=== PATIENT | female | born 1960 | race Caucasian/White ===

== ENCOUNTER 2017-11-22 15:23 | Emergency (ER) | payer MEDICAID ==
[~2017-11-22] VITALS: Ht 170.2 cm; Wt 61.4 kg
[2017-11-22 15:55] VITALS: BP 102/70
[2017-11-22] MEDS ORDERED: ketorolac trometh. 30mg/ml inj. IM ONE (18:05)
[2017-11-22] MEDS ORDERED: HYDR-569 PO (18:07)
[2017-11-22] MEDS ORDERED: ondansetron 4mg rapidly disintigrating tab PO ONE (18:20)
== END 2017-11-22 18:41 | disposition home or self-care (01) ==
LOC: ER 15:24
DX: S82.141A Displaced bicondylar fracture of right tibia, initial encounter for closed fracture (principal); W10.9XXA Fall (on) (from) unspecified stairs and steps, initial encounter; Y93.89 Activity, other specified; Y92.89 Other specified places as the place of occurrence of the external cause; Y99.8 Other external cause status
CPT/HCPCS: 29505; 73564; 96372; 99284; J1885

== ENCOUNTER 2017-12-02 09:42 | Outpatient (CLI) | payer MEDICAID ==
[2017-12-02 09:42] VITALS: BP 133/95
[~2017-12-02 09:42] MED LIST: HYDR-569 PO
== END 2017-12-02 10:45 | disposition home or self-care (01) ==
LOC: ORTHO 09:42
PROVIDERS: ATTEND Nurse Practitioner Family
DX: S82.141A Displaced bicondylar fracture of right tibia, initial encounter for closed fracture (principal); F17.210 Nicotine dependence, cigarettes, uncomplicated; G89.29 Other chronic pain; K44.9 Diaphragmatic hernia without obstruction or gangrene; X58.XXXA Exposure to other specified factors, initial encounter; Y93.89 Activity, other specified; Y92.89 Other specified places as the place of occurrence of the external cause; Y99.8 Other external cause status
CPT/HCPCS: 73560; 99215

== ENCOUNTER 2017-12-25 12:04 | Observation (INO) | payer MEDICAID ==
[2017-12-21 11:45] LABS: MEAN CORPUSCULAR HEMOGLOBIN 32.3 PG (27.0-31.0); MEAN CORPUSCULAR HGB CONC 33.9 % (33.0-36.5); MEAN CORPUSCULAR VOLUME 95.4 FL (78-98); MEAN PLATELET VOLUME 7.9 FL (7.4-10.4); PRE OP HEMATOCRIT 43.9 % (35.0-45.0); PRE OP HEMOGLOBIN 14.9 g/dL (12.0-16.0); PRE OP PLATELET COUNT 334 X10'3 (140-440); RED CELL DISTRIBUTION WIDTH 15.4 % (11.5-14.5)
[2017-12-21 12:00] LABS: ALBUMIN 4.1 G/DL (3.4-5.0); ALBUMIN/GLOBULIN RATIO 1.1 (1.1-1.5); ALKALINE PHOSPHATASE 94 IU/L (46-116); BLOOD UREA NITROGEN 12 MG/DL (7-18); BUN/CREATININE RATIO 17.1 (6.6-38.0); CALCIUM 9.6 MG/DL (8.5-10.1); CHLORIDE 98 MMOL/L (99-107); PRE OP ALT 21 U/L (30-65); PRE OP ANION GAP 13 (8-16); PRE OP AST 19 U/L (10-37); PRE OP BILIRUB, TOTAL 0.6 MG/DL (0.0-1.0); PRE OP GLUCOSE 94 MG/DL (70-104); PRE OP SODIUM 137 MMOL/L (135-145); TOTAL CARBON DIOXIDE 26.3 MMOL/L (24-32); TOTAL PROTEIN 7.9 G/DL (6.4-8.2); eGFR 87 ML/MIN
[2017-12-21 12:08] LABS: TOTAL CELLS COUNTED 100
[2017-12-21 12:10] LABS: PLATELET ESTIMATE NORMAL
[2017-12-21 12:11] LABS: HOWELL-JOLLY BODIES FEW
[2017-12-21 12:12] LABS: STOMATOCYTES FEW; TARGET CELLS FEW
[2017-12-25] VITALS (21 sets, daily range): BP systolic 124–160; BP diastolic 79–100
[~2017-12-25] VITALS: Ht 170.2 cm; Wt 60.2 kg
[~2017-12-25 12:04] MED LIST changes: +Cefazolin 2GM/100ML NS IVPB IV ONE; -HYDR-569 PO; +IBUP-1984 PO; +LIDOcaine 1% (10mg/ml) 2ml vial ONE; +VANCOMYCIN INJ 1000 MG in NORMAL SALINE 250ml IV.SOLN IV ONE; +albuterol 2.5 MG/3 ML nebule NEB ONE; +famotidine 20mg tablet PO ONE
[2017-12-25] MEDS: ringers solution, lacted 1,000 ML IV SCH ×2 (12:13→17:38)
[2017-12-25] MEDS ORDERED: ROPIVAcaine 0.5% (5mg/ml) 30ml vial ONE (12:57)
[2017-12-25] MEDS ORDERED: LIDOcaine 2% (20mg/ml) 5ml vial ONE (13:00)
[2017-12-25] MEDS ORDERED: sevoflurane 250ml liquid IH ONE (13:00)
[2017-12-25] MEDS ORDERED: propofol inj 20 ML IV ONE (13:00)
[2017-12-25] MEDS ORDERED: dexamethasone sod phosphate 4mg/ml inj. ONE (13:00)
[2017-12-25] MEDS ORDERED: ondansetron/PF 4mg/2ml inj ONE (13:00)
[2017-12-25] MEDS ORDERED: rocuronium 10mg/ml inj IV ONE (13:26)
[2017-12-25] MEDS ORDERED: fentaNYL/PF 50MCG/1 ML 2ML syringe ONE ×2 (13:28→13:57)
[2017-12-25] MEDS ORDERED: ceFAZolin 1000mg inj ONE (13:33)
[2017-12-25] MEDS ORDERED: ketorolac trometh. 30mg/ml inj. ONE (13:58)
[2017-12-25] MEDS ORDERED: ringers solution, lacted 1,000 ML IV SCH (14:04)
[2017-12-25] MEDS ORDERED: ondansetron/PF 4mg/2ml inj IV PRN ×2 (14:05→16:25)
[2017-12-25] MEDS ORDERED: hydrALAZINE 20mg/ml inj. IV PRN (14:05)
[2017-12-25] MEDS ORDERED: labetalol 5mg/ml 20ml inj. IV PRN (14:05)
[2017-12-25] MEDS ORDERED: morphine 4 MG/ML inj SYRINge IV PRN ×2 (14:05)
[2017-12-25] MEDS ORDERED: morphine 10mg/ml inj. ONE (14:50)
[2017-12-25] MEDS: fentaNYL/PF 50MCG/1 ML 2ML syringe IV PRN ×3 (15:53→16:04)
[2017-12-25] MEDS: HYDROcodone/acetaminophen 10/325mg tab PO PRN ×2 (17:42→21:42)
[2017-12-25] MEDS: vancomycin/NS 1 GM ADD-VANTAGE 250 ML IV SCH (19:50)
[2017-12-25] MEDS: ceFAZolin 1GM/D5W- ADD-VANTAGE 50 ML IV SCH (23:36)
[2017-12-26 02:00] VITALS: BP 133/75
[2017-12-26] MEDS: HYDROcodone/acetaminophen 10/325mg tab PO PRN ×3 (05:13→13:31)
[2017-12-26 06:00] VITALS: BP 108/65
[2017-12-26] MEDS: ceFAZolin 1GM/D5W- ADD-VANTAGE 50 ML IV SCH (07:13)
[2017-12-26] MEDS: vancomycin/NS 1 GM ADD-VANTAGE 250 ML IV SCH (07:13)
[2017-12-26 10:00] VITALS: BP 111/62
[2017-12-26] MEDS ORDERED: ASPI-974 PO (12:19)
== END 2017-12-26 13:55 | disposition home or self-care (01) ==
LOC: PAS 12:04 → ORTHO 4S 16:23
PROVIDERS: ADMIT Orthopaedic Surgery; ATTEND Orthopaedic Surgery
DX: S82.141A Displaced bicondylar fracture of right tibia, initial encounter for closed fracture (principal); F17.210 Nicotine dependence, cigarettes, uncomplicated; M54.9 Dorsalgia, unspecified; G89.29 Other chronic pain; M46.90 Unspecified inflammatory spondylopathy, site unspecified; X58.XXXA Exposure to other specified factors, initial encounter; Y93.89 Activity, other specified; Y92.89 Other specified places as the place of occurrence of the external cause; Y99.8 Other external cause status; Z79.82 Long term (current) use of aspirin
CPT/HCPCS: 27536; 36415; 73590; 76001; 80053; 85025; 93005; 94640; 96365; 96366; 96367; 96368; 96375; 97116; 97161; A6446; A6449; C1713; G0378; J0690; J1100; J1885; J2001; J2270; J2405; J2704; J2795; J3010; J3370; J3490; J7120; L1832; A7000

== ENCOUNTER 2018-01-08 11:10 | Outpatient (CLI) | payer MEDICAID ==
[2018-01-08 11:09] VITALS: BP 159/102
[~2018-01-08 11:10] MED LIST changes: +ASPI-974 PO; -Cefazolin 2GM/100ML NS IVPB IV ONE; -IBUP-1984 PO; -LIDOcaine 1% (10mg/ml) 2ml vial ONE; -VANCOMYCIN INJ 1000 MG in NORMAL SALINE 250ml IV.SOLN IV ONE; -albuterol 2.5 MG/3 ML nebule NEB ONE; -famotidine 20mg tablet PO ONE
[2018-01-09] MEDS ORDERED: HYDR-569 PO (19:55)
== END 2018-01-08 12:05 | disposition home or self-care (01) ==
LOC: ORTHO 11:10
PROVIDERS: ATTEND Nurse Practitioner Family
DX: S82.141D Displaced bicondylar fracture of right tibia, subsequent encounter for closed fracture with routine healing (principal); F17.210 Nicotine dependence, cigarettes, uncomplicated; M25.461 Effusion, right knee; X58.XXXD Exposure to other specified factors, subsequent encounter
CPT/HCPCS: 73560; 99214; A6449

== ENCOUNTER 2018-01-26 10:11 | Outpatient (CLI) | payer MEDICAID ==
[~2018-01-26 10:11] MED LIST changes: +HYDR-565 PO
[2018-01-26 10:20] VITALS: BP 131/89
== END 2018-01-26 11:25 | disposition home or self-care (01) ==
LOC: ORTHO 10:11
PROVIDERS: ATTEND Nurse Practitioner Family
DX: S82.141D Displaced bicondylar fracture of right tibia, subsequent encounter for closed fracture with routine healing (principal); F10.10 Alcohol abuse, uncomplicated; F17.210 Nicotine dependence, cigarettes, uncomplicated; X58.XXXD Exposure to other specified factors, subsequent encounter
CPT/HCPCS: 73560; 99213

== ENCOUNTER 2018-02-16 09:29 | Outpatient (CLI) | payer MEDICAID ==
[2018-02-16 09:47] VITALS: BP 128/94
== END 2018-02-16 10:22 | disposition home or self-care (01) ==
LOC: ORTHO 09:29
PROVIDERS: ATTEND Nurse Practitioner Family
DX: S82.141D Displaced bicondylar fracture of right tibia, subsequent encounter for closed fracture with routine healing (principal); F17.210 Nicotine dependence, cigarettes, uncomplicated; Z88.8 Allergy status to other drugs, medicaments and biological substances; X58.XXXD Exposure to other specified factors, subsequent encounter
CPT/HCPCS: 73560; 99213

== ENCOUNTER 2018-03-09 09:54 | Outpatient (CLI) | payer MEDICAID ==
[2018-03-09 10:04] VITALS: BP 121/88
== END 2018-03-09 10:47 | disposition home or self-care (01) ==
LOC: ORTHO 09:54
PROVIDERS: ATTEND Nurse Practitioner Family
DX: S82.141D Displaced bicondylar fracture of right tibia, subsequent encounter for closed fracture with routine healing (principal); F17.210 Nicotine dependence, cigarettes, uncomplicated; Z88.5 Allergy status to narcotic agent; Z72.89 Other problems related to lifestyle; X58.XXXD Exposure to other specified factors, subsequent encounter
CPT/HCPCS: 73560; 99213

== ENCOUNTER 2018-03-25 09:32 | Outpatient (CLI) | payer MEDICAID ==
[2018-03-25 09:30] VITALS: BP 144/91
== END 2018-03-25 10:15 | disposition home or self-care (01) ==
LOC: ORTHO 09:32
PROVIDERS: ATTEND Nurse Practitioner Family
DX: S32.511A Fracture of superior rim of right pubis, initial encounter for closed fracture (principal); S92.354A Nondisplaced fracture of fifth metatarsal bone, right foot, initial encounter for closed fracture; S82.141D Displaced bicondylar fracture of right tibia, subsequent encounter for closed fracture with routine healing; F17.210 Nicotine dependence, cigarettes, uncomplicated; Z88.5 Allergy status to narcotic agent; M85.88 Other specified disorders of bone density and structure, other site; W01.0XXA Fall on same level from slipping, tripping and stumbling without subsequent striking against object, initial encounter; Y93.89 Activity, other specified; Y92.89 Other specified places as the place of occurrence of the external cause
CPT/HCPCS: 73502; 73560; 73630; 99213

== ENCOUNTER 2018-05-25 09:44 | Outpatient (CLI) | payer MEDICAID ==
[2018-05-25 09:42] VITALS: BP 137/94
== END 2018-05-25 10:19 | disposition home or self-care (01) ==
LOC: ORTHO 09:44
PROVIDERS: ATTEND Nurse Practitioner Family
DX: S82.141G Displaced bicondylar fracture of right tibia, subsequent encounter for closed fracture with delayed healing (principal); S32.501G Unspecified fracture of right pubis, subsequent encounter for fracture with delayed healing; S93.411A Sprain of calcaneofibular ligament of right ankle, initial encounter; M85.89 Other specified disorders of bone density and structure, multiple sites; F17.210 Nicotine dependence, cigarettes, uncomplicated; Z88.5 Allergy status to narcotic agent; W01.0XXD Fall on same level from slipping, tripping and stumbling without subsequent striking against object, subsequent encounter; W01.0XXA Fall on same level from slipping, tripping and stumbling without subsequent striking against object, initial encounter; Y93.89 Activity, other specified; Y92.89 Other specified places as the place of occurrence of the external cause; Y99.8 Other external cause status
CPT/HCPCS: 73560; 73610; 99213

== ENCOUNTER 2018-08-05 09:35 | Outpatient (CLI) | payer MEDICAID ==
[2018-08-05 09:38] VITALS: BP 130/93
== END 2018-08-05 10:24 | disposition home or self-care (01) ==
LOC: ORTHO 09:35
PROVIDERS: ATTEND Nurse Practitioner Family
DX: S82.141G Displaced bicondylar fracture of right tibia, subsequent encounter for closed fracture with delayed healing (principal); S32.511G Fracture of superior rim of right pubis, subsequent encounter for fracture with delayed healing; M17.11 Unilateral primary osteoarthritis, right knee; F17.210 Nicotine dependence, cigarettes, uncomplicated; F12.90 Cannabis use, unspecified, uncomplicated; Z88.5 Allergy status to narcotic agent; Z72.89 Other problems related to lifestyle; W01.0XXD Fall on same level from slipping, tripping and stumbling without subsequent striking against object, subsequent encounter
CPT/HCPCS: 72170; 73560; 99213

== ENCOUNTER 2018-09-09 09:41 | Outpatient (CLI) | payer MEDICAID ==
[2018-09-09 09:42] VITALS: BP 151/99
== END 2018-09-09 10:27 | disposition home or self-care (01) ==
LOC: ORTHO 09:41
PROVIDERS: ATTEND Nurse Practitioner Family
DX: S82.141D Displaced bicondylar fracture of right tibia, subsequent encounter for closed fracture with routine healing (principal); S32.511D Fracture of superior rim of right pubis, subsequent encounter for fracture with routine healing; F12.90 Cannabis use, unspecified, uncomplicated; F17.210 Nicotine dependence, cigarettes, uncomplicated; Z72.89 Other problems related to lifestyle; Z88.5 Allergy status to narcotic agent; W01.0XXD Fall on same level from slipping, tripping and stumbling without subsequent striking against object, subsequent encounter
CPT/HCPCS: 72170; 73560; G0463

== ENCOUNTER 2018-10-14 09:41 | Outpatient (CLI) | payer MEDICAID ==
[2018-10-14 09:25] VITALS: BP 157/106
== END 2018-10-14 09:57 | disposition home or self-care (01) ==
LOC: ORTHO 09:41
PROVIDERS: ATTEND Nurse Practitioner Family
DX: S82.131D Displaced fracture of medial condyle of right tibia, subsequent encounter for closed fracture with routine healing (principal); S32.511D Fracture of superior rim of right pubis, subsequent encounter for fracture with routine healing; F17.210 Nicotine dependence, cigarettes, uncomplicated; Z88.5 Allergy status to narcotic agent; W01.0XXD Fall on same level from slipping, tripping and stumbling without subsequent striking against object, subsequent encounter
CPT/HCPCS: 72170; 73560; 99213

== ENCOUNTER 2020-08-05 15:08 | Emergency (ER) | payer MEDICAID ==
[~2020-08-05] VITALS: Ht 170.2 cm; Wt 58.3 kg
[2020-08-05 15:12] VITALS: BP 187/107
[2020-08-05] MEDS ORDERED: PENI500T2 PO (15:32)
== END 2020-08-05 15:45 | disposition home or self-care (01) ==
LOC: ER 15:08
DX: K02.9 Dental caries, unspecified (principal); G89.29 Other chronic pain; F17.200 Nicotine dependence, unspecified, uncomplicated; M54.9 Dorsalgia, unspecified; Z87.81 Personal history of (healed) traumatic fracture; Z98.890 Other specified postprocedural states; Z88.5 Allergy status to narcotic agent; Z88.0 Allergy status to penicillin
CPT/HCPCS: 99283